=== PATIENT | male | born 1975 | race African-American/Black ===

== ENCOUNTER 2018-03-18 14:29 | Emergency (ER) | payer SELFPAY ==
[~2018-03-18] VITALS: Ht 152.4 cm; Wt 77.9 kg
[2018-03-18 14:52] VITALS: BP 116/80
[2018-03-18 17:00] LABS: BASOPHILS % 0.9 % (0.0-2.0); EOSINOPHILS % 3.3 % (0.0-5.0); HEMATOCRIT. 40.7 % (42.0-52.0); HEMOGLOBIN. 13.4 g/dL (14.0-18.0); LYMPHOCYTES % 45.9 % (20.0-50.0); MEAN CORPUSCULAR HEMOGLOBIN 27.2 pg (28.0-32.0); MEAN CORPUSCULAR VOLUME 82.8 fL (80.0-94.0); MEAN PLATELET VOLUME 8.9 fl (7.4-10.4); MONOCYTES % 13.9 % (2.0-8.0); PLATELET 194 x1000/uL (130-400); RED BLOOD CELL COUNT 4.92 mill/uL (4.7-6.1); RED CELL DISTRIBUTION WIDTH 14.9 % (11.6-14.6)
[2018-03-18 17:04] LABS: CHLORIDE 105 mEq/L (98-107)
== END 2018-03-18 20:20 | disposition home or self-care (01) ==
LOC: ER 20:07
DX: R53.83 Other fatigue (principal)
CPT/HCPCS: 36415; 71045; 80053; 85025; 99285